=== PATIENT | female | born 1940 | race Caucasian/White ===

== ENCOUNTER 2017-04-09 16:17 | Observation (INO) | payer MEDICARE, OTHER, MEDICAID ==
--- NOTE | 2017-04-09 16:08 | EDM.PDOC ---
ED HPI GENERAL MEDICAL PROBLEM - General Chief Complaint: Back Pain or Injury Stated Complaint: FELL, [facility] Time Seen by Provider: 04/09/17 16:08 Source of Information: Reports: Patient, EMS, RN, RN Notes Reviewed History Limitations: Reports: No Limitations - History of Present Illness INITIAL COMMENTS - FREE TEXT/NARRATIVE: Patient presents to the ER per [facility]. Patient states she was preparing food in her kitchen yesterday morning when she fell. She states this was about 0900 on 04/08/17. She states she felt somewhat dizzy prior to falling. She denies hitting her head or loss of consciousness. She denies chest pain, sob, abdominal pain, fever, chills, N/V/D. She states she was not able to get up off the floor. Today she was yelling and her neighbor heard her and called the ambulance. Patient complains of pain in the coccyx and points to the right knee. She states she is very thirsty. Onset Date: 04/08/17 Location: Reports: Lower Extremity, Right Severity: Mild Improves with: Reports: None Worsens with: Reports: None Associated Symptoms: Reports: No Other Symptoms Right Knee Pain Score (Numeric/FACES): 8 - Related Data Allergies Allergy/AdvReac Type Severity Reaction Status Date / Time No Known Allergies Allergy Verified 04/09/17 16:36 Home Meds: Home Meds Ascorbate Calcium [Vitamin C] 500 mg PO DAILY 04/09/17 [History] Aspirin [Adult Low Dose Aspirin EC] 81 mg PO DAILY 04/09/17 [History] Calcium Carbonate [Calcium] 600 mg PO DAILY 04/09/17 [History] Ferrous Gluconate 324 mg PO DAILY 04/09/17 [History] Levothyroxine 125 mcg PO DAILY 04/09/17 [History] Metoprolol Tartrate [Metoprolol Tartrate] 50 mg PO DAILY 04/09/17 [History] Omeprazole [Omeprazole] 20 mg PO DAILY 04/09/17 [History] Sertraline [Zoloft] 50 mg PO BEDTIME 04/09/17 [History] atorvaSTATin [Lipitor] 10 mg PO BEDTIME 04/09/17 [History] Review of Systems - Review of Systems Review Of Systems: ROS reveals no pertinent complaints other than HPI. ED EXAM, GENERAL - Physical Exam Exam: See Below Exam Limited By: No Limitations General Appearance: Alert, WD/WN, No Apparent Distress Eye Exam: Bilateral Eye: Normal Inspection (Wears glasses) Ears: Normal External Exam, Hearing Grossly Normal Nose: Normal Inspection Throat/Mouth: Other (very dry mucous membranes, lips) Head: Atraumatic, Normocephalic Neck: Normal Inspection, Supple, Non-Tender, Full Range of Motion Respiratory/Chest: No Respiratory Distress, No Accessory Muscle Use Peripheral Pulses: 1+: Radial (L), Radial (R), Dorsalis Pedis (L), Dorsalis Pedis (R) GI/Abdominal: Normal Bowel Sounds, Tender (Female) Exam: Deferred Rectal (Female) Exam: Deferred Back Exam: Normal Inspection, Decreased Range of Motion Extremities: Normal Inspection, Limited Range of Motion Neurological: Alert, Oriented, Normal Cognition, No Motor/Sensory Deficits Psychiatric: Normal Affect, Normal Mood Skin Exam: Warm, Dry, Decubitus (buttocks erythematous bilterally, breakdown of skin beginning to occur on the left buttock.), Other Lymphatic: No Adenopathy EKG INTERPRETATION EKG Date: 04/09/17 Time: 18:33 Rhythm: NSR [place]: Normal P-Wave: Present QRS: Normal ST-T: Normal QT: Normal Comparison: NA - No Prior EKG Course - Vital Signs Last Recorded V/S: Last Vital Signs Temp 98.1 F 04/09/17 16:31 Pulse 68 04/09/17 17:49 Resp 16 04/09/17 17:49 BP 151/55 H 04/09/17 17:49 Pulse Ox 97 04/09/17 17:49 - Orders/Labs/Meds Orders: Active Orders 24 hr Category Date Time Status EKG Documentation Completion [RC] STAT Care 04/09/17 18:28 Active Knee 3V Lt [CR] Routine Exams 04/09/17 16:54 Taken CBC WITH AUTO DIFF [HEME] Stat Lab 04/09/17 16:10 Ordered CK W CKMB [CHEM] Stat Lab 04/09/17 16:10 Ordered COMPREHENSIVE METABOLIC PN,CMP [CHEM] Stat Lab 04/09/17 16:10 Ordered TROPONIN I [CHEM] Stat Lab 04/09/17 16:10 Ordered UA W/MICROSCOPIC [URIN] Stat Lab 04/09/17 16:10 Uncollected Sodium Chloride 0.9% [Normal Saline] 1,000 ml Med 10/03/17 17:58 Active IV .BOLUS Peripheral IV Insertion Adult [OM.PC] Stat Oth 04/09/17 16:10 Ordered Medication Orders Sodium Chloride (Normal Saline) 1,000 mls @ 125 mls/hr IV .BOLUS ONE Stop: 04/10/17 01:57 Last Admin: 04/09/17 18:03 Dose: 125 mls/hr Labs: Laboratory Tests 04/09/17 04/09/17 04/09/17 Range/Units 17:07 17:07 17:07 WBC 9.1 (5.0-10.0) 10^3/uL RBC 4.70 (4.2-5.4) 10^6/uL Hgb 14.2 (12.0-16.0) g/dL Hct 41.7 (37.0-47.0) % MCV 88.7 (80-100) fL MCH 30.2 (27.0-34.0) pg MCHC 34.1 (33.0-35.0) g/dL Plt Count 204 (150-450) 10^3/uL Neut % (Auto) 82.0 H (42.2-75.2) % Lymph % (Auto) 11.3 L (20.5-50.1) % [place] % (Auto) 5.6 (2-8) % Eos % (Auto) 0.7 L (1.0-3.0) % Baso % (Auto) 0.4 (0.0-1.0) % Sodium 141 (135-145) mmol/L Potassium 4.0 (3.6-5.0) mmol/L Chloride 102 (101-111) mmol/L Carbon Dioxide 27.0 (21.0-31.0) mmol/L Anion Gap 16.0 BUN 24 H (7-18) mg/dL Creatinine 0.9 (0.6-1.3) mg/dL Est Cr Clr Drug Dosing 45.20 mL/min Estimated GFR (MDRD) > 60 BUN/Creatinine Ratio 26.66 Glucose 107 H (74-105) mg/dL Calcium 9.3 (8.4-10.2) mg/dl Total Bilirubin 1.4 H (0.2-1.0) mg/dL AST 36 (10-42) IU/L ALT 20 (10-60) IU/L Alkaline Phosphatase 72 (42-121) IU/L Creatine Kinase 875 H (26-174) IU/L Creatine Kinase Index 0.7 (0-2.4) % CK-MB (CK-2) 6.20 H (0.4-4.7) ng/mL Troponin I < 0.02 (0.00-0.02) ng/ml Total Protein 7.7 (6.7-8.2) g/dl Albumin 4.3 (3.2-5.5) g/dl Globulin 3.4 Albumin/Globulin Ratio 1.26 Meds: Medications Generic Name Dose Route Start Last Admin Trade Name Freq PRN Reason Stop Dose Admin Sodium Chloride 1,000 mls @ 125 mls/hr 04/09/17 17:58 04/09/17 18:03 Normal Saline IV 04/10/17 01:57 125 mls/hr .BOLUS ONE Administration - Radiology Interpretation Free Text/Narrative:: Pelvis xray: Unremarkable for age 3V knee bilaterally: Unremarkable for age See rad report - Re-Assessments/Exams Free Text/Narrative Re-Assessment/Exam: 04/09/17 17:03 Upon arrival and initial assessment, the patient lifted her pant leg on the right leg and pointed at her right knee stating she had pain. This was also observed by Randy Duran PA-C, and Carol Macdonald RN. When the radiology techs asked the patient where she was having pain, she lifted and pointed to her left knee. Radiology called and asked which knee should be x-rayed, as the xray was ordered for the right knee. The decision was made to x-ray both knees. Departure - Departure Time of Disposition: 18:31 Disposition: Admitted As Inpatient 65 Condition: Fair Clinical Impression: Generalized weakness - Discharge Information Forms: ED Department Discharge - My Orders Last 24 Hours: My Active Orders 04/09/17 16:10 CBC WITH AUTO DIFF [HEME] Stat CK W CKMB [CHEM] Stat COMPREHENSIVE METABOLIC PN,CMP [CHEM] Stat TROPONIN I [CHEM] Stat UA W/MICROSCOPIC [URIN] Stat Peripheral IV Insertion Adult [OM.PC] Stat 04/09/17 17:58 Sodium Chloride 0.9% [Normal Saline] 1,000 ml IV .BOLUS 04/09/17 18:28 EKG Documentation Completion [RC] STAT - Assessment/Plan Last 24 Hours: My Active Orders 04/09/17 16:10 CBC WITH AUTO DIFF [HEME] Stat CK W CKMB [CHEM] Stat COMPREHENSIVE METABOLIC PN,CMP [CHEM] Stat TROPONIN I [CHEM] Stat UA W/MICROSCOPIC [URIN] Stat Peripheral IV Insertion Adult [OM.PC] Stat 04/09/17 17:58 Sodium Chloride 0.9% [Normal Saline] 1,000 ml IV .BOLUS 04/09/17 18:28 EKG Documentation Completion [RC] STAT
--- NOTE | 2017-04-09 17:10 | CR ---
Clinical history: 76-year-old female injured fall. Interpretation: AP pelvis and hips (single projection) unremarkable for age (osteopenia and arthritic lower lumbar spine). Symmetric normal spacing of the SI and hip joints. No sign of pathologic skeletal lesion, pelvic or e ither hip fracture/dislocation.
--- NOTE | 2017-04-09 17:12 | CR ---
Clinical history: 76-year-old female injured in fall. Interpretation: AP knees, lateral and sunrise views both knees unremarkable for age i.e. osteopenia but no sign of fr acture or dislocation. Bony spurs at insertion quadriceps tendon dorsal aspect of the patella. No joint effusions or radiopa que loose joint bodies.
[2017-04-09 17:38] LABS: CHLORIDE,CL 102 mmol/L (101-111); SODIUM,NA 141 mmol/L (135-145)
[2017-04-09] MEDS ORDERED: Sodium Chloride 0.9% 1,000 ML IV ONE (17:58)
[2017-04-09] MEDS ORDERED: Zolpidem 5 MG Tab PO PRN (19:14)
[2017-04-09] MEDS ORDERED: Ondansetron 4 MG Tab.DIS PO PRN (19:14)
[2017-04-09] MEDS ORDERED: Acetaminophen 325 MG Tab PO PRN (19:14)
--- NOTE | 2017-04-09 19:30 | PCM.HP ---
H&P History of Present Illness - General Date of Service: 04/09/17 Admit Problem/Dx: Admission Diagnosis/Problem Admission Diagnosis/Problem Weakness - History of Present Illness Initial Comments - Free Text/Narative: The patient is a 76-year-old lady with a history of hypertension, dyslipidemia, hypothyroidism. The patient has been living alone. She was in the kitchen when she fell. This happened on the morning of 08 April. She said she was too weak to stand up. She denies loss of consciousness. She stayed on the floor for about 36 hours when she was found by neighbors. She was not able to eat or drink anything in the meantime. She is complaining of lower back pain, was complaining of bilateral knee pain. She was very thirsty when arrived to the emergency room. Right Knee Pain Score (Numeric/FACES): 8 - Related Data Allergies/Adverse Reactions: Allergies Allergy/AdvReac Type Severity Reaction Status Date / Time No Known Allergies Allergy Verified 04/09/17 16:36 Home Medications: Home Meds Ascorbate Calcium [Vitamin C] 500 mg PO DAILY 04/09/17 [History] Aspirin [Adult Low Dose Aspirin EC] 81 mg PO DAILY 04/09/17 [History] Calcium Carbonate [Calcium] 600 mg PO DAILY 04/09/17 [History] Ferrous Gluconate 324 mg PO DAILY 04/09/17 [History] Levothyroxine 125 mcg PO DAILY 04/09/17 [History] Metoprolol Tartrate [Metoprolol Tartrate] 50 mg PO DAILY 04/09/17 [History] Omeprazole [Omeprazole] 20 mg PO DAILY 04/09/17 [History] Sertraline [Zoloft] 50 mg PO BEDTIME 04/09/17 [History] atorvaSTATin [Lipitor] 10 mg PO BEDTIME 04/09/17 [History] Past Medical History HEENT History: Reports: Impaired Vision Cardiovascular History: Reports: High Cholesterol, Hypertension Gastrointestinal History: Reports: GERD Neurological History: Reports: Other (See Below) Other Neuro History: cerebrovascular disease Psychiatric History: Reports: Depression Endocrine/Metabolic History: Reports: Hypothyroidism Hematologic History: Reports: Other (See Below) Other Hematologic History: microcytic aenemia - Past Surgical History GI Surgical History: Reports: Appendectomy Social & Family History - Tobacco Use Smoking Status *Q: Never Smoker - Caffeine Use Caffeine Use: Reports: Coffee, Soda - Recreational Drug Use Recreational Drug Use: No H&P Review of Systems - Review of Systems: Review Of Systems: See Below General: Denies: Fever Pulmonary: Denies: Shortness of Breath Cardiovascular: Denies: Chest Pain, Palpitations Gastrointestinal: Denies: Abdominal Pain Genitourinary: Denies: Dysuria Psychiatric: Reports: Confusion (In the emergency room there was a question if she has confusion when she was giving different pain complain in the knees to different examiner.) Exam - Exam Exam: See Below - Vital Signs Vital Signs: Last Vital Signs Temp 36.4 C 04/09/17 19:19 Pulse 81 04/09/17 19:19 Resp 20 04/09/17 19:19 BP 156/81 H 04/09/17 19:19 Pulse Ox 97 04/09/17 19:19 Weight: 70.534 kg - Exam General: Alert, Oriented HEENT: Other (Dry mouth) Neck: Supple Lungs: Clear to Auscultation, Normal Respiratory Effort Cardiovascular: Regular Rate, Regular Rhythm GI/Abdominal Exam: Normal Bowel Sounds, Soft, Non-Tender Extremities: No Pedal Edema Skin: Other (Small area of small area of bruise on the left shoulder) Neuro Extensive - Mental Status: Alert, Oriented x3, Normal Mood/Affect - Patient Data Lab Results Last 24 hrs: EKG per my reading shows normal sinus rhythm Result Diagrams: 04/09/17 17:07 04/09/17 17:07 *Q Meaningful Use (ADM) - VTE *Q VTE Criteria *Q: - Stroke *Q Stroke Criteria *Q: - AMI *Q AMI Criteria *Q: - Problem List (1) Dehydration SNOMED Code(s): 58770503 ICD Code: E86.0 - DEHYDRATION Status: Acute Current Visit: Yes (2) Rhabdomyolysis SNOMED Code(s): 097668158 ICD Code: M62.82 - RHABDOMYOLYSIS Status: Acute Current Visit: Yes (3) Generalized weakness SNOMED Code(s): 47707273 ICD Code: R53.1 - WEAKNESS Status: Acute Current Visit: Yes Problem List Initiated/Reviewed/Updated: Yes Orders Last 24hrs: Active Orders 24 hr Category Date Time Status Patient Status [ADT] Routine ADT 04/09/17 19:14 Ordered Antiembolic Devices [RC] PER UNIT ROUTINE Care 04/09/17 19:16 Ordered Oxygen Therapy [RC] PRN Care 04/09/17 19:14 Ordered Up With Assistance [RC] ASDIRECTED Care 04/09/17 19:14 Ordered VTE/DVT Education [RC] PER UNIT ROUTINE Care 04/09/17 19:14 Ordered Vital Signs [RC] Q4H Care 04/09/17 19:14 Ordered OT Evaluation and Treatment [CONS] Routine Cons 04/09/17 19:11 Ordered PT Evaluation and Treatment [CONS] Routine Cons 04/09/17 19:11 Ordered Regular Diet [DIET] Diet 04/09/17 Breakfast Ordered BASIC METABOLIC PANEL,BMP [CHEM] AM Lab 04/10/17 05:15 Ordered CBC WITH AUTO DIFF [HEME] AM Lab 04/10/17 05:15 Ordered CPK [CREATINE KINASE,CK] [CHEM] AM Lab 04/10/17 05:11 Ordered MAGNESIUM [CHEM] AM Lab 04/10/17 05:11 Ordered PHOSPHORUS [CHEM] AM Lab 04/10/17 05:11 Ordered Acetaminophen [Tylenol] Med 04/09/17 19:14 Ordered 650 mg PO Q4H PRN Ascorbate Calcium [Vitamin C] Med 04/10/17 09:00 Ordered 500 mg PO DAILY Aspirin [Halfprin] Med 04/10/17 09:00 Ordered 81 mg PO DAILY Calcium Carbonate Med 04/10/17 09:00 Ordered 600 mg PO DAILY Docusate Sodium/Sennosides [Senna Plus] Med 04/09/17 19:14 Ordered 1 tab PO BEDTIME PRN Enoxaparin [Lovenox] Med 04/10/17 09:00 Ordered 40 mg SUBCUT DAILY Ferrous Gluconate [Ferrous Gluconate] Med 04/10/17 09:00 Ordered 324 mg PO DAILY Levothyroxine Med 04/10/17 09:00 Ordered 125 mcg PO DAILY Metoprolol Succinate [Toprol XL] Med 04/10/17 09:00 Ordered 50 mg PO DAILY Omeprazole Med 04/10/17 09:00 Ordered 20 mg PO DAILY Ondansetron [Zofran ODT] Med 04/09/17 19:14 Ordered 4 mg PO Q6H PRN Sertraline [Zoloft] Med 04/09/17 21:00 Ordered 50 mg PO BEDTIME Sodium Chloride 0.9% with KCl 20 mEq @ 100 mL/Hr (1000 Med 10/03/17 19:15 Ordered mL) NS + KCl 20mEq/L [Normal Saline with 20 mEq KCl] 1,000 ml IV ASDIRECTED Zolpidem [Ambien] Med 04/09/17 19:14 Ordered 5 mg PO BEDTIME PRN atorvaSTATin [Lipitor] Med 04/09/17 21:00 Ordered 10 mg PO BEDTIME Sequential Compression Device [OM.PC] Per Unit Routine Oth 04/09/17 19:15 Ordered Resuscitation Status Routine Resus Stat 04/09/17 19:14 Ordered Medication Orders Acetaminophen (Tylenol) 650 mg PO Q4H PRN PRN Reason: Pain (Mild 1-3)/fever Ascorbic Acid (Vitamin C) 500 mg PO DAILY JOHN Aspirin (Halfprin) 81 mg PO DAILY JOHN Atorvastatin Calcium (Lipitor) 10 mg PO BEDTIME JOHN Calcium Carbonate/Glycine (Tums) 500 mg PO DAILY JOHN Enoxaparin Sodium (Lovenox) 40 mg SUBCUT DAILY JOHN Sodium Chloride (Normal Saline) 1,000 mls @ 125 mls/hr IV .BOLUS ONE Stop: 04/10/17 01:57 Last Admin: 04/09/17 18:03 Dose: 125 mls/hr Potassium Chloride/Sodium Chloride (Normal Saline With 20 Meq Kcl) 1,000 mls @ 100 mls/hr IV ASDIRECTED JOHN Levothyroxine Sodium (Levothyroxine) 125 mcg PO DAILY JOHN Metoprolol Succinate (Toprol Xl) 50 mg PO DAILY [facility] Non-Formulary Medication (Ferrous Gluconate [Ferrous Gluconate]) 324 mg PO DAILY JOHN Omeprazole (Omeprazole) 20 mg PO ACBRK JOHN Ondansetron HCl (Zofran Odt) 4 mg PO Q6H PRN PRN Reason: nausea, able to take PO Senna/Docusate Sodium (Senna Plus) 1 tab PO BEDTIME PRN PRN Reason: Constipation Sertraline HCl (Zoloft) 50 mg PO BEDTIME JOHN Zolpidem Tartrate (Ambien) 5 mg PO BEDTIME PRN PRN Reason: Sleep Assessment/Plan Comment:: The patient is a 76-year-old lady who presented when she fell and was found after 36 hours. She was staying on the floor was unable to the top. #1 dehydration Due to inability of oral intake Will hydrate the patient follow electrolytes magnesium and phosphorus #2 rhabdomyolysis Secondary to staying on the floor with poor hydration and nutrition We will hold the statin Will recheck CPK in the morning after hydration #3 fall No apparent loss of consciousness, seizure We'll monitor mental status #4 there is no apparent injury to the pelvis or lower extremities based on examination and x-ray Will have physical and occupational therapy work with the patient We'll monitor #5 history of hypertension Resume metoprolol #6 hypothyroidism Continue to treat with Synthroid #7 DVT prophylaxis will be with Lovenox
[2017-04-09] MEDS: Sertraline 50 MG Tab PO SCH ×2 (19:55→19:59)
[2017-04-09] MEDS: NS + KCl 20mEq/L 1,000 ML IV SCH (19:56)
[2017-04-09] MEDS ORDERED: atorvaSTATin 10 MG Tab PO SCH (21:00)
[2017-04-09] MEDS: Ferrous Sulfate 325 MG Tab PO SCH (21:10)
[2017-04-10] MEDS: Omeprazole 20 MG Cap.CR PO SCH (05:08)
[2017-04-10] MEDS: NS + KCl 20mEq/L 1,000 ML IV SCH ×2 (05:50→15:46)
[2017-04-10 07:08] LABS: CHLORIDE,CL 105 mmol/L (101-111); SODIUM,NA 138 mmol/L (135-145)
[2017-04-10] MEDS: Aspirin 81 MG Tab.EC PO SCH (08:32)
[2017-04-10] MEDS: Calcium Carbonate 500 MG Tab.Chew PO SCH (08:32)
[2017-04-10] MEDS: Metoprolol Succinate 50 MG Tab.ER PO SCH (08:32)
[2017-04-10] MEDS: Ascorbic Acid 500 MG Tab PO SCH (08:33)
[2017-04-10] MEDS: Levothyroxine 125 MCG Tab PO SCH (08:33)
[2017-04-10] MEDS: Enoxaparin 40 MG/0.4 ML Syringe SUBCUT SCH (08:33)
[2017-04-10] MEDS: Ferrous Sulfate 325 MG Tab PO SCH (08:33)
[2017-04-10] MEDS ORDERED: Non-Formulary Medication 1 Each (Ferrous Gluconate [Ferrous Gluconate] 324 MG) PO SCH (09:00)
[2017-04-10] MEDS: Phosphorus #1 250 MG Tab PO SCH ×3 (11:26→17:45)
--- NOTE | 2017-04-10 11:32 | PCM.PN ---
- General Info Date of Service: 04/10/17 Admission Dx/Problem (Free Text): Admission Diagnosis/Problem Admission Diagnosis/Problem Weakness Subjective Update: The patient was admitted after she was found on the floor laying about 36 hours. She was unable to stand up. The patient was dehydrated and has been treated with IV fluids. She is feeling much better. She is eating, has been off with physical therapy. She is complaining of pain in the buttock, the pain is moderate and is associated with the excoriation. She has been incontinent to urine. - Review of Systems General: Reports: Weakness. Denies: Fever Pulmonary: Denies: Shortness of Breath Cardiovascular: Denies: Chest Pain Gastrointestinal: Denies: Abdominal Pain Genitourinary: Reports: Incontinence Psychiatric: Denies: Confusion - Patient Data Vitals - Most Recent: Last Vital Signs Temp 37.1 C 04/10/17 07:00 Pulse 50 L 04/10/17 08:32 Resp 20 04/10/17 07:00 BP 163/64 H 04/10/17 08:32 Pulse Ox 95 04/10/17 07:00 Weight - Most Recent: 70.534 kg I&O - Last 24 Hours: Intake & Output 04/09/17 04/10/17 04/10/17 22:59 06:59 14:59 Intake Total 295 996 200 Balance 295 996 200 Lab Results Last 24 Hours: Laboratory Results - last 24 hr 04/10/17 04/10/17 Range/Units 06:26 06:26 WBC 7.7 (5.0-10.0) 10^3/uL RBC 4.16 L (4.2-5.4) 10^6/uL Hgb 12.5 D (12.0-16.0) g/dL Hct 37.2 (37.0-47.0) % MCV 89.4 (80-100) fL MCH 30.0 (27.0-34.0) pg MCHC 33.6 (33.0-35.0) g/dL Plt Count 184 (150-450) 10^3/uL Neut % (Auto) 75.0 (42.2-75.2) % Lymph % (Auto) 15.8 L (20.5-50.1) % [place] % (Auto) 7.1 (2-8) % Eos % (Auto) 1.6 (1.0-3.0) % Baso % (Auto) 0.5 (0.0-1.0) % Sodium 138 (135-145) mmol/L Potassium 3.7 (3.6-5.0) mmol/L Chloride 105 (101-111) mmol/L Carbon Dioxide 24.0 (21.0-31.0) mmol/L Anion Gap 12.7 BUN 20 H (7-18) mg/dL Creatinine 0.9 (0.6-1.3) mg/dL Est Cr Clr Drug Dosing 47.10 mL/min Estimated GFR (MDRD) > 60 Glucose 103 (74-105) mg/dL Calcium 8.4 (8.4-10.2) mg/dl Phosphorus 2.3 L (2.5-4.6) mg/dL Magnesium 1.7 L (1.8-2.5) mg/dL Creatine Kinase 761 H (26-174) IU/L Med Orders - Current: Current Medications Acetaminophen (Tylenol) 650 mg PO Q4H PRN PRN Reason: Pain (Mild 1-3)/fever Ascorbic Acid (Vitamin C) 500 mg PO DAILY [facility] Last Admin: 04/10/17 08:33 Dose: 500 mg Aspirin (Halfprin) 81 mg PO DAILY [facility] Last Admin: 04/10/17 08:32 Dose: 81 mg Calcium Carbonate/Glycine (Tums) 500 mg PO DAILY [facility] Last Admin: 04/10/17 08:32 Dose: 500 mg Enoxaparin Sodium (Lovenox) 40 mg SUBCUT DAILY [facility] Last Admin: 04/10/17 08:33 Dose: 40 mg Ferrous Sulfate (Ferrous Sulfate) 325 mg PO WITHBREAKFAST [facility] Last Admin: 04/10/17 08:33 Dose: 325 mg Potassium Chloride/Sodium Chloride (Normal Saline With 20 Meq Kcl) 1,000 mls @ 50 mls/hr IV ASDIRECTED [facility] Last Admin: 04/10/17 05:50 Dose: 100 mls/hr Levothyroxine Sodium (Levothyroxine) 125 mcg PO DAILY [facility] Last Admin: 04/10/17 08:33 Dose: 125 mcg Magnesium Oxide (Magnesium Oxide) 250 mg PO BIDM [facility] Stop: 04/10/17 18:01 Last Admin: 04/10/17 11:26 Dose: 250 mg Metoprolol Succinate (Toprol Xl) 50 mg PO DAILY [facility] Last Admin: 04/10/17 08:32 Dose: 50 mg Omeprazole (Omeprazole) 20 mg PO ACBRK [facility] Last Admin: 04/10/17 05:08 Dose: 20 mg Ondansetron HCl (Zofran Odt) 4 mg PO Q6H PRN PRN Reason: nausea, able to take PO Senna/Docusate Sodium (Senna Plus) 1 tab PO BEDTIME PRN PRN Reason: Constipation Sertraline HCl (Zoloft) 50 mg PO BEDTIME [facility] Last Admin: 04/09/17 19:59 Dose: Not Given Sodium Phosphate (Neutra-Phos) 250 mg PO QID [facility] Stop: 04/10/17 17:01 Last Admin: 04/10/17 11:26 Dose: 250 mg Zolpidem Tartrate (Ambien) 5 mg PO BEDTIME PRN PRN Reason: Sleep Discontinued Medications Atorvastatin Calcium (Lipitor) 10 mg PO BEDTIME [facility] Sodium Chloride (Normal Saline) 1,000 mls @ 125 mls/hr IV .BOLUS ONE Stop: 04/10/17 01:57 Last Admin: 04/09/17 18:03 Dose: 125 mls/hr Non-Formulary Medication (Ferrous Gluconate [Ferrous Gluconate]) 324 mg PO DAILY [facility] - Exam General: Alert, Oriented Neck: Supple Lungs: Normal Respiratory Effort, Decreased Breath Sounds Cardiovascular: Regular Rate, Regular Rhythm Extremities: No Pedal Edema Skin: Other (Erythema of the buttocks) - Problem List & Annotations (1) Dehydration SNOMED Code(s): 72942270 Code(s): E86.0 - DEHYDRATION Status: Acute Current Visit: Yes (2) Rhabdomyolysis SNOMED Code(s): 203330303 Code(s): M62.82 - RHABDOMYOLYSIS Status: Acute Current Visit: Yes (3) Generalized weakness SNOMED Code(s): 65668313 Code(s): R53.1 - WEAKNESS Status: Acute Current Visit: Yes - Problem List Review Problem List Initiated/Reviewed/Updated: Yes - My Orders Last 24 Hours: My Active Orders 04/09/17 20:12 Wound Care [RC] DAILY 04/09/17 20:15 Ferrous Sulfate 325 mg PO WITHBREAKFAST 04/10/17 10:30 Magnesium Oxide 250 mg PO BIDM Phosphorus #1 [Neutra-Phos] 250 mg PO QID 04/11/17 05:11 MAGNESIUM [CHEM] AM PHOSPHORUS [CHEM] AM 04/11/17 05:15 BASIC METABOLIC PANEL,BMP [CHEM] AM CBC WITH AUTO DIFF [HEME] AM - Plan Plan:: The patient is a 76-year-old lady who presented when she fell and was found after 36 hours. She was staying on the floor was unable to the top. #1 dehydration Due to inability of oral intake Improved Will continue to hydrate the patient but I will decrease the rate We will replace phosphorus and magnesium Recheck electrolytes magnesium and phosphorus in the morning #2 rhabdomyolysis Secondary to staying on the floor with poor hydration and nutrition We will hold the statin Improved Continue hydration #3 fall No apparent loss of consciousness, seizure We'll monitor mental status The patient will further physical and occupational therapy #4 there is no apparent injury to the pelvis or lower extremities based on examination and x-ray Will have physical and occupational therapy work with the patient We'll monitor #5 history of hypertension Resume metoprolol #6 hypothyroidism Continue to treat with Synthroid #7 DVT prophylaxis will be with Lovenox
[2017-04-10] MEDS: Sertraline 50 MG Tab PO SCH (20:54)
[2017-04-11] MEDS: Omeprazole 20 MG Cap.CR PO SCH (05:29)
[2017-04-11 06:55] LABS: CHLORIDE,CL 110 mmol/L (101-111); SODIUM,NA 141 mmol/L (135-145)
--- NOTE | 2017-04-11 08:34 | EKG ---
04/09/2017- BRANDON GRESHAM - EKG per my reading shows sinus arrhythmia. No acute ST changes. MODL /[id number]
[2017-04-11] MEDS: Levothyroxine 125 MCG Tab PO SCH (09:07)
[2017-04-11] MEDS: Aspirin 81 MG Tab.EC PO SCH (09:07)
[2017-04-11] MEDS: Ferrous Sulfate 325 MG Tab PO SCH (09:07)
[2017-04-11] MEDS: Ascorbic Acid 500 MG Tab PO SCH (09:07)
[2017-04-11] MEDS: Metoprolol Succinate 50 MG Tab.ER PO SCH (09:08)
[2017-04-11] MEDS: Calcium Carbonate 500 MG Tab.Chew PO SCH (09:08)
[2017-04-11] MEDS: Enoxaparin 40 MG/0.4 ML Syringe SUBCUT SCH (09:09)
[2017-04-11 14:52] VITALS: BP 136/63
--- NOTE | 2017-04-12 01:46 | DISCH ---
HISTORY OF PRESENTING ILLNESS: Mrs. Amaya Giron is a 76-year-old female with medical history significant for hypertension, hyperlipidemia, hypothyroidism, staying alone at home, had a fall in her kitchen after she slipped and fell on April 08. She was on the floor for almost 36 hours. She denied any loss of consciousness, and the patient had extensive workup done on this admission including knee x-ray and also a pelvic x-ray which did not show any acute fracture. The patient was admitted and was evaluated by physical therapy and occupational therapy. She was able to ambulate well without any difficulty. She had also complications with acute rhabdomyolysis requiring IV fluids. She was also noted to have hypokalemia at the time of discharge, requiring oral potassium chloride supplement. She was able to ambulate well without any difficulty. She is encouraged to use a walker at home. Then, she has home helpers coming to her home. She is encouraged to have them come at least 3 times a week to watch on her. She is discharged home in stable condition. She is advised to follow with her primary care physician in the next 1 week of time. ADMISSION DIAGNOSES: 1. Fall. 2. Acute rhabdomyolysis. DISCHARGE DIAGNOSES: 1. Fall. 2. Acute rhabdomyolysis, resolved by IV fluids. 3. Acute hypokalemia, on oral potassium chloride supplement. 4. Intractable pain. PHYSICAL EXAMINATION: Vital Signs: On the day of discharge vitals; temperature of 98.7, pulse of 63, blood pressure 148/63, respiratory rate of 20, saturating at 95% on room air. General Appearance: The patient is well oriented to time, place, and person. Follows commands spontaneously. Cardiovascular System: S1, S2 heard with normal intensity. No gallops. Respiratory: Clear to auscultation bilaterally. No wheeze. No crepitations. Abdomen: Bowel sounds positive. Nontender. No rigidity. Extremities: No edema in bilateral lower extremities. Neurology: No gross focal neurological deficit. DISCHARGE MEDICATIONS: Include: 1. Vitamin C 500 mg daily. 2. Aspirin 81 mg daily. 3. Calcium carbonate 600 mg daily. 4. Ferrous gluconate 325 mg daily. 5. Levothyroxine 125 mcg daily. 6. Metoprolol 50 mg daily. 7. Omeprazole 20 mg daily. 8. Potassium chloride 10 mEq daily. 9. Zoloft 50 mg at bedtime. 10.Lipitor 10 mg at bedtime. CONDITION ON ADMISSION: Poor. CONDITION ON DISCHARGE: Stable. DISPOSITION: Discharged to home. FOLLOWUP: Follow up with primary care physician in the next 1 week of time. DIET: Cardiac healthy diet. ACTIVITY: As tolerated. TIME SPENT: Spent over 35 minutes of time in evaluating and treating this patient and making discharge orders. [facility] /[id number]
== END 2017-04-11 17:00 | disposition home or self-care (01) ==
LOC: DL.ED 16:17 → UNDOADMOB 18:39 → DL.MS 18:39
PROVIDERS: ADMIT Internal Medicine; ATTEND Internal Medicine
DX: T79.6XXA Traumatic ischemia of muscle, initial encounter (principal); E87.6 Hypokalemia; I10 Essential (primary) hypertension; E78.00 Pure hypercholesterolemia, unspecified; K21.9 Gastro-esophageal reflux disease without esophagitis; F32.9 Major depressive disorder, single episode, unspecified; E03.9 Hypothyroidism, unspecified; I63.9 Cerebral infarction, unspecified; W01.0XXA Fall on same level from slipping, tripping and stumbling without subsequent striking against object, initial encounter; Y92.89 Other specified places as the place of occurrence of the external cause; Z79.82 Long term (current) use of aspirin; Z79.899 Other long term (current) drug therapy; Z90.49 Acquired absence of other specified parts of digestive tract
CPT/HCPCS: 36415; 72170; 73562; 80048; 80053; 82550; 82553; 83735; 84100; 84484; 85025; 93005; 93010; 96360; 96361; 96372; 97161; 97166; 99285; A9270; G0378; J1650; J3480; J7030; 99283

== ENCOUNTER → 2019-08-18 | Day surgery (SDC) | payer MEDICARE, OTHER, MEDICAID ==
[~2019-08-18] MED LIST: Lactated Ringers 1,000 ML IV SCH; Lidocaine 1% 30 ML SDV INJECT ONE; Lidocaine 1% 30 ML SDV ONE; Midazolam 1 MG/ML 2 ML SDV IV ONE; Midazolam 1 MG/ML 2 ML SDV ONE; fentaNYL 100 MCG/2 ML SDV ONE
[2019-08-18 13:41] VITALS: BP 158/68; PULSE 62
--- NOTE | 2019-08-18 15:08 | OR ---
DATE: 08/18/2019 PREOPERATIVE DIAGNOSIS: Bleeding hemorrhoids, internal and external. POSTOPERATIVE DIAGNOSIS: Bleeding hemorrhoids, internal and external. PROCEDURE: Excision of complex internal and external hemorrhoid regions x2. ANESTHESIA: Local plus conscious sedation. SPECIMEN: Hemorrhoids. INDICATION FOR PROCEDURE: This 78-year-old female has multiple episodes of bleeding hemorrhoids. By physical examination, she has a necrotic area over an external hemorrhoid. OPERATIVE FINDINGS: Complex internal-external hemorrhoid systems. PROCEDURE IN DETAIL: After examination, this was more of a complex hemorrhoid problem that I had initially seen in the clinic yesterday. She does have extensive internal hemorrhoid complexes and now has protruding external hemorrhoids. These were not fully appreciated yesterday. I had initially thought this was going to be just a skin, almost like a skin tag excision. However, examination required hemorrhoidectomy. I could see 2 large complexes of internal hemorrhoids that communicated with external ones as probable bleeding sites, but they are not actively bleeding now. A V-incision was made on the external hemorrhoid and the hemorrhoid was lifted up off the internal sphincter. A clamp was placed along the base of the hemorrhoid and the hemorrhoid tissue external and internal were excised. The mucosal edges were then resewn together using a 2-0 Vicryl suture. This complex was on the right anterior portion of the anal canal. There is another large complex on the left and left posterior side. In a likewise manner, these internal-external complexes were taken out and the resulting excision was then oversewn using a 2-0 Vicryl suture. Examination showed no evidence of bleeding and marked reduction of the hemorrhoid mass. [facility] /[id number]
== END ==
LOC: DL.SDS 08:52 → EDSTATUS 10:30
PROVIDERS: ATTEND Surgery
DX: K64.8 Other hemorrhoids (principal); K64.4 Residual hemorrhoidal skin tags; Z79.82 Long term (current) use of aspirin; Z79.899 Other long term (current) drug therapy
CPT/HCPCS: 46260; J2001; J2250; J7120; 88304